=== PATIENT | male | born 1990 | race Caucasian/White ===

== ENCOUNTER 2022-11-09 14:41 | Emergency (ER) | payer OTHER, SELFPAY ==
--- NOTE | ~2022-11-09 | CT_ITS ---
EXAMINATION: CT abdomen pelvis w con INDICATION: Left lower quadrant pain TECHNIQUE: Computed tomographic images of the abdomen and pelvis were obtained after the administrati on of 100 cc of Omnipaque 350 intravenous contrast. The dose-length product (DLP) was 1640.88 mGy-cm. Automated exposure control and iterative reconstruction technique were employed. COMPARISON: None available FINDINGS: Minimal dependent atelectasis is present in the lung bases. The heart size is normal. The l iver is diffusely low in attenuation when compared with the spleen, consistent with hepatic steatosis . The spleen, pancreas, gallbladder, and adrenal glands are normal. No pathologically enlarged abdomi nal or pelvic lymph nodes are identified. No free intraperitoneal gas or evidence of bowel obstructio n. The appendix is normal. There is mild lumbar spondylosis. IMPRESSION: 1. Diffuse hepatic steatosis. Reviewed, dictated and finalized at location F.
[2022-11-09 14:54] VITALS: BP 145/105; PULSE 100; RESP 16; TEMP 36.3; O2SAT 97
[2022-11-09 15:36] LABS: Appearance Urine Clear (Clear); Bacteria Urine None Seen /hpf; Bilirubin Urine Negative (Negative); Blood Urine Negative (Negative); Color Urine Yellow (Yellow); Glucose Urine UA Negative (Negative); Ketones Urine Negative (Negative); Leukocyte Esterase Ur Trace LEU/UL (Negative); Nitrate Urine Negative (Negative); Non Pathogenic Casts 0-2; Protein Urine Negative (Negative); RBC Urine 0-2 /hpf (0-2); Specific Grav Ur 1.012 (1.001-1.035); Squamous Epithelial Cell Urine None seen /hpf (Few); WBC Urine 0-5 /hpf; pH Urine 6.5 (5.0-9.0)
[2022-11-09 15:45] LABS: Basophils Percent Auto 0.4 % (0.2-1.2); Eosinophils Absolute Auto 0.1 K/mm3 (0-0.3); Hematocrit 43.9 % (42.0-52.0); Immature Granulocyte Absolute 0.01 K/mm3 (0.00-0.031); Immature Granulocyte Percent A 0.2 % (0-0.5); Lymphocytes Absolute Auto 2.09 K/mm3 (0.9-3.2); Lymphocytes Percent Auto 44.5 % (18.3-44.2); Mean Corpuscular HGB Conc 34.2 g/dl (32-36); Mean Corpuscular Hemoglobin 31.1 pg (26-34); Mean Corpuscular Volume 91.1 fl (80-100); Mean Platelet Volume 10.2 fl (7.4-10.4); Monocytes Absolute Auto 0.4 K/mm3 (0.1-0.6); Monocytes Percent Auto 8.3 % (2.6-8.5); Neutrophils Absolute Auto 2.1 K/mm3 (1.3-6.7); Neutrophils Percent Auto 43.6 % (45.5-73.1); Platelet Count Result 156 k/mm3 (150-375); Red Blood Count 4.82 M/mm3 (4.6-6.20); Red Cell Distribution Width 13.2 % (11.5-14.5); White Blood Count 4.7 K/mm3 (4.5-10.0)
[2022-11-09 15:53] LABS: Add Urine Microscopic? YES
[2022-11-09 16:02] LABS: Alanine Aminotransferase 188 U/L (6-50); Albumin Level 4.6 g/dL (3.5-5.1); Alkaline Phosphatase 124 U/L (38-126); Anion Gap 11 mmol/L (8-16); Aspartate Amino Transferase 158 U/L (17-59); Bilirubin,Total 0.5 mg/dL (0.2-1.3); Blood Urea Nitrogen 11 mg/dL (9-20); Calcium 8.9 mg/dL (8.4-10.2); Carbon Dioxide 26 mmol/L (22-30); Chloride 100 mmol/L (98-107); Estimated Glomerular Filt Rate > 60; Glucose 100 mg/dL (65-110); Lipase 105 U/L (23-300); Potassium 4.1 mmol/L (3.4-5.0); Sodium 137 mmol/L (137-145)
--- NOTE | 2022-11-09 16:42 | ED.ABDPAIN ---
HPI - Abdominal Pain General Chief Complaint: Abdominal Pain Stated Complaint: Request Lab Work, Multiple Complaints Time Seen by Provider: 11/09/22 15:12 History of Present Illness HPI narrative: 32-year-old male present to the emergency department for evaluation of abdominal pain. Patient does admit to a recent alcohol binge where he has been drinking approximately 2 x 1/5 of alcohol daily. Patient did drink alcohol today. Patient states he has been having some right upper quadrant pain Related Data Allergies Allergy/AdvReac Type Severity Reaction Status Date / Time No Known Allergies Allergy Verified 11/09/22 15:03 Review of Systems Review of Systems: All systems reviewed & are unremarkable except as noted in HPI and below Exam Narrative: APPEARANCE: Well appearing, no pain, no distress, well-nourished. HEAD: normocephalic, atraumatic. EYES: PERRLA/EOMI, conjunctivae clear. NOSE: Normal no drainage EARS:TMS clear with good light reflex. THROAT: Pharynx clear, no exudate. NECK: Supple. No adenopathy, no masses. RESPIRATORY: Airway patent, respirations nonlabored. Clear to auscultation bilaterally, no rales, rhonchi, wheezing. CARDIOVASCULAR: Regular rate and rhythm without murmurs rubs or gallops. ABDOMINAL: Left lower quadrant tenderness to palpation MUSCULOSKELETAL: Moves all extremities. Strength/ROM intact, No edema, No calf tenderness. NEURO: Alert. Cranial nerves II through XII intact. Grossly intact SKIN: Warm, dry. Normal Color Course Course Emergency Course: 32-year-old male presented ED for evaluation of of abdominal pain. Patient had a negative CT scan. Patient was afebrile with no leukocytosis and a stable hemoglobin. Patient had mild elevation of his AST and ALT. No evidence of a UTI. Patient CT scan did show evidence of hepatic steatosis. Patient was updated on results of his imaging and was encouraged of close follow-up with a primary care physician and to quit drinking alcohol. All question concerns were addressed and patient was comfortable with the plan for discharge and close follow-up. Vital Signs Vital signs: Vital Signs Temperature 97.4 F L 11/09/22 14:54 Pulse Rate 100 11/09/22 14:54 Respiratory Rate 16 11/09/22 14:54 Blood Pressure 145/105 H 11/09/22 14:54 Pulse Oximetry 97 11/09/22 14:54 Oxygen Delivery Room Air 11/09/22 14:54 Temperature 97.4 F L 11/09/22 14:54 Pulse Rate 100 11/09/22 14:54 Respiratory Rate 16 11/09/22 14:54 Blood Pressure 145/105 H 11/09/22 14:54 Pulse Oximetry 97 11/09/22 14:54 Oxygen Delivery Room Air 11/09/22 14:54 MDM - Abdominal Pain Lab Data 11/09/22 15:40 11/09/22 15:40 Labs: Lab Results 11/09/22 11/09/22 11/09/22 Range/Units 15:18 15:40 16:39 WBC 4.7 (4.5-10.0) K/mm3 RBC 4.82 (4.6-6.20) M/mm3 Hgb 15.0 (14.0-18.0) g/dL Hct 43.9 (42.0-52.0) % MCV 91.1 (80-100) fl MCH 31.1 (26-34) pg MCHC 34.2 (32-36) g/dl RDW 13.2 (11.5-14.5) % Plt Count 156 (150-375) k/mm3 MPV 10.2 (7.4-10.4) fl Immature Gran % (Auto) 0.2 (0-0.5) % Neut % (Auto) 43.6 L (45.5-73.1) % Lymph % (Auto) 44.5 H (18.3-44.2) % [place] % (Auto) 8.3 (2.6-8.5) % Eos % (Auto) 3.0 (0-4.4) % Baso % (Auto) 0.4 (0.2-1.2) % Lymph # (Auto) 2.09 (0.9-3.2) K/mm3 [place] # (Auto) 0.4 (0.1-0.6) K/mm3 Eos # (Auto) 0.1 (0-0.3) K/mm3 Baso # (Auto) 0.0 (0.0-0.1) K/mm3 Abs Immat Gran (auto) 0.01 (0.00-0.031) K/mm3 Absolute Neuts (auto) 2.1 (1.3-6.7) K/mm3 Absolute Nucleated RBC 0.0 (0.0-0.012) K/mm3 Nucleated RBC % 0.0 (0.0-0.2) % Sodium 137 (137-145) mmol/L Potassium 4.1 (3.4-5.0) mmol/L Chloride 100 (98-107) mmol/L Carbon Dioxide 26 (22-30) mmol/L Anion Gap 11 (8-16) mmol/L BUN 11 (9-20) mg/dL Creatinine 0.70 (0.7-1.3) mg/dL Estim Creat Clear Calc Not Reportable Est
[2022-11-09] MEDS: SODIUM CHLORIDE 0.9% IV 1,000 ML 999 ML IV CONT (16:43)
[2022-11-09 16:56] LABS: Ammonia 18 umol/L (9-30)
== END 2022-11-09 17:29 | disposition home or self-care (01) ==
PROVIDERS: Emergency Provider Emergency Medicine
DX: R10.11 Right upper quadrant pain (principal); K76.0 Fatty (change of) liver, not elsewhere classified
CPT/HCPCS: 36415; 74177; 80053; 81001; 82140; 83690; 85025; 96360; 99284; J7030; Q9967

== ENCOUNTER 2023-01-28 09:07 | Observation (INO) | payer OTHER, SELFPAY ==
[2023-01-28] VITALS (8 sets, daily range): BP systolic 117–151; BP diastolic 76–112; PULSE 62–92; RESP 13–20; TEMP 36.7–37.1; O2SAT 96–99; BMI 32.4
--- NOTE | ~2023-01-28 | CT_ITS ---
EXAMINATION: CT abdomen pelvis w con DATE: 01/28/2023 10:24 INDICATION: Abdominal pain TECHNIQUE: Computed tomography (CT) of the abdomen and pelvis was performed with 100 cc Omnipaque 350 intravenous contrast. The dose-length product was 1552.86 mGy-cm. Automated exposure control and ite rative reconstruction technique were employed. COMPARISON: CT dated 11/09/2022. FINDINGS: Lung bases are unremarkable. Heart size normal. Fatty infiltration of the liver. Gallbladde r is present. There is duplication of the left renal collecting system. The spleen, pancreas, adrenal glands are unremarkable. Small subcentimeter hypodensity right kidney, most likely benign cysts. No significant hydronephrosis. No stones are identified. Nonobstructive bowel gas pattern. No significan t vascular abnormality. No abnormal pelvic masses or fluid collections. No free air or free fluid. No lymphadenopathy. No acute osseous abnormality. IMPRESSION: 1. No acute abdominal abnormality. 2: Hepatic steatosis. 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 Reviewed, dictated and finalized at location B.
--- NOTE | 2023-01-28 09:23 | ECG_ITS ---
Measurements Intervals [place] Rate: 68 P: 29 [place]: 138 QRS: -24 QRSD: 114 T: -11 QT: 423 QTc: 452 Interpretive Statements SINUS RHYTHM BORDERLINE LEFT AXIS DEVIATION [QRS AXIS < -20] MODERATE INTRAVENTRICULAR CONDUCTION DELAY [110+ ms QRS DURATION] MODERATE VOLTAGE CRITERIA FOR LVH, CONSIDER NORMAL VARIANT [MEETS CRITERIA IN ONE OF: R(aVL), S(V1), R(V5), R(V5/V6)+S(V1)] NO PREVIOUS ECG AVAILABLE FOR COMPARISON Electronically Signed On 01-29-2023 19:43:43 CDT by Romelia Mejía M.D.
--- NOTE | 2023-01-28 09:26 | PC.NURSE ---
Mother at bedside. Mother states pt 6 years ago pt was assessed for liver transplant. Pt states last live enzymes normal
--- NOTE | 2023-01-28 09:28 | ED.GENADULT ---
HPI - General Adult General Chief complaint: Alcohol Stated complaint: N/V, fever Time Seen by Provider: 01/28/23 09:08 History of Present Illness HPI narrative: Robb Bloom is a 32 y/o male with PMHx of ETOH abuse/ admits to being an alcoholic for about 12 years, and has been able to ween himself down before at home which he was attempting to do over this past week, until three days ago he started to have nausea/vomiting and abdominal pain. He states with alcohol withdrawals he has had the shakes/ hallucinations but never a seizure. He states that he has seen spots or felt something crawling on him a couple days ago but not any obvious hallucinations. He rates his abdominal pain at a 10/10 and states he has not eaten food in about a week. No chest pain/ shortness of breath. Related Data Home Medications Medication Instructions Recorded Confirmed buprenorphine 8 mg-naloxone 2 mg film sublingual BID 01/28/23 sublingual film dextroamphetamine-amphetamine 30 30 mg PO BID 01/28/23 01/28/23 mg tablet escitalopram oxalate 20 mg tablet 20 mg PO DAILY 01/28/23 01/28/23 Allergies Allergy/AdvReac Type Severity Reaction Status Date / Time No Known Allergies Allergy Verified 01/28/23 09:35 Review of Systems Review of Systems: CONSTITUTIONAL: Denies fever, chills, or sweats. EYES: Denies visual changes, redness, or discharge. ENT: Denies rhinorrhea, congestion, sore throat, or otalgia. CARDIOVASCULAR: Denies chest pain, palpitations, or edema. RESPIRATORY: Denies cough or dyspnea. GASTROINTESTINAL: Reports of abdominal pain/ nausea/vomiting. GENITOURINARY: Denies dysuria or hematuria. SKIN: Denies rash or itching. MUSCULOSKELETAL: Denies back pain, joint pain, or myalgia. NEUROLOGIC: Denies headache, numbness, dizziness, or weakness. PSYCHIATRIC: Denies anxiety or depression. [facility] Past Medical History Medical History (Updated 01/28/23 @ 19:10 by Urvashi Hanks APRN) ADHD Anxiety ETOH abuse Polysubstance abuse Social History Social History (Updated 01/28/23 @ 13:06 by Bailey Vences APRN) Social History: Patient says he was recently at a rehab in [place] completed treatment and then went to a sober living facility. He then moved appear to [place] because he needed work and his family owns a company and offered her him. Currently works at [employer]. Smoking packs per day: 0.5 Smoking cigarettes per day: 10.0 Years smoked: 5 Smoking pack-years: 2.50 Tobacco type: cigarettes Smokeless tobacco user: chewing tobacco Alcohol intake: current Alcohol use details: States he drinks 2 1/5's a day of vodka for the past few months. He has had a problem with alcohol abuse for 12 years. Substance use: former Substance use type: marijuana, amphetamines, opiates and IV drugs Other substance usage details: Last use IV methamphetamine 1 year ago. 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 EYES: PERRLA and EOMI. ENT: Nares clear, no rhinorrhea or epistaxis. Mucous membranes moist. NECK: Supple. No adenopathy or masses. No carotid bruits or JVD CHEST: Clear to auscultation. No respiratory distress. No wheezes rales or rhonchi HEART: Regular rate and rhythm. No murmur heard. Normal peripheral pulses. ABDOMEN:
[2023-01-28] MEDS: PROCHLORPERAZINE EDISYLATE 10 MG/2 ML VIAL IV PUSH (09:41)
[2023-01-28] MEDS: FAMOTIDINE 20 MG/2 ML VIAL IV PUSH ×2 (09:41→20:05)
[2023-01-28] MEDS: SODIUM CHLORIDE 0.9% IV 1,000 ML 999 ML IV CONT (09:41)
[2023-01-28] MEDS: diphenhydrAMINE HCl INJ 50 MG/ML VIAL 25 MG IV PUSH (09:41)
[2023-01-28 09:42] LABS: Basophils Percent Auto 0.2 % (0.2-1.2); Eosinophils Absolute Auto 0.1 K/mm3 (0-0.3); Eosinophils Percent Auto 1.1 % (0-4.4); Hemoglobin 16.7 g/dL (14.0-18.0); Immature Granulocyte Absolute 0.02 K/mm3 (0.00-0.031); Immature Granulocyte Percent A 0.3 % (0-0.5); Lymphocytes Absolute Auto 0.87 K/mm3 (0.9-3.2); Lymphocytes Percent Auto 13.2 % (18.3-44.2); Mean Corpuscular HGB Conc 35.5 g/dl (32-36); Mean Corpuscular Hemoglobin 31.9 pg (26-34); Mean Corpuscular Volume 89.9 fl (80-100); Mean Platelet Volume 11.2 fl (7.4-10.4); Monocytes Absolute Auto 0.4 K/mm3 (0.1-0.6); Monocytes Percent Auto 5.6 % (2.6-8.5); Neutrophils Absolute Auto 5.2 K/mm3 (1.3-6.7); Neutrophils Percent Auto 79.6 % (45.5-73.1); Platelet Count Result 144 k/mm3 (150-375); Red Blood Count 5.23 M/mm3 (4.6-6.20); Red Cell Distribution Width 12.6 % (11.5-14.5); White Blood Count 6.6 K/mm3 (4.5-10.0)
[2023-01-28 09:53] LABS: Alanine Aminotransferase 176 U/L (6-50); Albumin Level 4.8 g/dL (3.5-5.1); Alkaline Phosphatase 182 U/L (38-126); Anion Gap 13 mmol/L (8-16); Aspartate Amino Transferase 291 U/L (17-59); Bilirubin,Total 2.1 mg/dL (0.2-1.3); Blood Urea Nitrogen 9 mg/dL (9-20); Calcium 10.1 mg/dL (8.4-10.2); Carbon Dioxide 29 mmol/L (22-30); Chloride 87 mmol/L (98-107); Estimated CRCL calculation 249 ml/min; Estimated Glomerular Filt Rate > 60; Glucose 145 mg/dL (65-110); Magnesium 1.5 mg/dL (1.6-2.3); Partial Thromboplastin Time 26.6 SECONDS (22.3-36.8); Potassium 3.2 mmol/L (3.4-5.0); Prothrombin Time 13.8 Seconds (11.1-14.7); Sodium 129 mmol/L (137-145)
[2023-01-28 09:56] LABS: Ethanol < 10 mg/dL (<10)
[2023-01-28 10:04] LABS: Troponin I < 0.012 ng/mL (0.000-0.034)
--- NOTE | 2023-01-28 10:32 | PCCCNOTE ---
Met with patient bedside, patient is alert and oriented x 4, I ADL and states that he came to ER with alcohol withdraw symptoms. patient is interested in recovery and agreed to a referral to Brendon with [facility]. CC printed facesheet and gave to Brendon. CC will continue to follow for any needs that may arise.
[2023-01-28 11:12] LABS: Add Urine Microscopic? YES; Appearance Urine Clear (Clear); Bacteria Urine None Seen /hpf; Bilirubin Urine 1+ (Negative); Blood Urine Negative (Negative); Color Urine Dark Yellow (Yellow); Glucose Urine UA Negative (Negative); Ketones Urine Negative (Negative); Leukocyte Esterase Ur Trace LEU/UL (Negative); Nitrate Urine Negative (Negative); Non Pathogenic Casts 0-2; Protein Urine 2+ mg/dL (Negative); RBC Urine 0-2 /hpf (0-2); Squamous Epithelial Cell Urine None seen /hpf (Few); WBC Urine 0-5 /hpf
[2023-01-28] MEDS: LORazepam INJ (*CRX) 2 MG/ML VIAL IV PUSH ×2 (11:44→16:26)
[2023-01-28 12:14] LABS: Amphetamine Screen Urine Negative (Negative); Barbiturate Screen Urine Negative (Negative); Benzodiazepines Screen Urine Negative (Negative); Cannabinoid Screen Urine Negative (Negative); Cocaine Screen Urine Negative (Negative); Methadone Screen Urine Negative (Negative); Opiate Screen Urine Negative (Negative); Phencyclidine Screen Urine Negative (Negative)
--- NOTE | 2023-01-28 12:22 | ADMIMU ---
This patient, Robb Bloom, was admitted to IMU status, and placed in Intensive Care Unit-6. Patient/family oriented to hospital policies and general routines including ID bracelet, bed and alarms, visiting hours, pain management, procedures, bathroom and other care routines, personal items, smoking policy, room service/diet, and visiting hours. Valuables list has been completed. Information on how to activate the Rapid Response Team has been discussed. Patient/Family are encouraged to report perceived risks to care and to ask questions if they do not understand what they are told or what they should do.
--- NOTE | 2023-01-28 12:24 | PM.IMHP ---
H&P: HPI History of Present Illness Date/Time: 01/28/23 12:24 Meds Home Medications and Allergies Allergies Allergy/AdvReac Type Severity Reaction Status Date / Time No Known Allergies Allergy Verified 01/28/23 09:35 Vital Signs Vital Signs - 24 hr 01/28/23 09:12 01/28/23 09:16 01/28/23 10:01 Temperature Pulse Rate 68 64 62 Respiratory Rate 20 19 13 Blood Pressure 151/111 H 148/112 H 142/100 H Pulse Oximetry 99 98 99 Oxygen Delivery Room Air 01/28/23 11:31 Temperature 36.7 C Pulse Rate 68 Respiratory Rate 18 Blood Pressure 117/81 Pulse Oximetry 97 Oxygen Delivery H&P: Results Labs Labs: Short CBC 01/28/23 Range/Units 09:31 WBC 6.6 (4.5-10.0) K/mm3 Hgb 16.7 (14.0-18.0) g/dL Hct 47.0 (42.0-52.0) % Plt Count 144 L (150-375) k/mm3 BMP 01/28/23 09:31 Sodium 129 L Potassium 3.2 L Chloride 87 L Carbon Dioxide 29 BUN 9 Creatinine 0.50 L Glucose 145 H Calcium 10.1 Cardiac Enzymes 01/28/23 Range/Units 09:31 Troponin I < 0.012 (0.000-0.034) ng/mL Liver Function 01/28/23 Range/Units 09:31 Total Bilirubin 2.1 H (0.2-1.3) mg/dL AST 291 H (17-59) U/L ALT 176 H (6-50) U/L Alkaline Phosphatase 182 H (38-126) U/L Albumin 4.8 (3.5-5.1) g/dL Urine 01/28/23 Range/Units 10:34 Urine Color Dark yellow (Yellow) Urine Appearance Clear (Clear) Urine pH 8.0 (5.0-9.0) Ur Specific [place] 1.020 (1.001-1.035) Urine Protein 2+ H (Negative) mg/dL Urine Glucose (UA) Negative (Negative) mg/dL
--- NOTE | 2023-01-28 12:53 | PM.IMHP ---
H&P: HPI History of Present Illness Date/Time: 01/28/23 12:53 Chief Complaint: Nausea and vomiting from alcohol withdrawal Narrative: This is a 32-year-old male with a past medical history of anxiety, ADHD, and polysubstance abuse. He presents to [facility] ED on 01/28 with complaints of nausea and vomiting and unable to eat or drink as he has been trying to wean himself from alcohol. He states that he drinks 2/5 of vodka a day and has for the past few months. He has had chronic alcohol abuse for the past 12 years. He states that he has a past medical history of opioid abuse for which he takes Suboxone, he has also used IV meth but year ago, and chews tobacco. Labs in the ER showed electrolyte derangements along with elevated liver enzymes. CT abdomen pelvis shows hepatic steatosis but is otherwise benign. On exam he is drowsy, tremulous, and has difficulty with word finding. He reports nausea and vomiting, denies any active hallucinations but he says that everything ?seems loud?. He also reports dizziness. He says that he has withdrawn from alcohol before and has experienced tactile and auditory hallucinations. He states he has never had a seizure from withdrawal. His also says his throat is sore from the frequent vomiting. He is being admitted for IV hydration, electrolyte replacement, and monitoring during withdrawal from alcohol. Review of Systems Review of Systems: All systems reviewed & are unremarkable except as noted in HPI and below PMFSH Past Medical History Medical History (Updated 01/28/23 @ 13:11 by Bailey Vences APRN) ADHD Anxiety ETOH abuse Polysubstance abuse Social History Social History (Updated 01/28/23 @ 13:06 by Bailey Vences APRN) Social History: Patient says he was recently at a rehab in [place] completed treatment and then went to a sober living facility. He then moved appear to [place] because he needed work and his family owns a company and offered her him. Currently works at [employer]. Smoking packs per day: 0.5 Smoking cigarettes per day: 10.0 Years smoked: 5 Smoking pack-years: 2.50 Tobacco type: cigarettes Smokeless tobacco user: chewing tobacco Alcohol intake: current Alcohol use details: States he drinks 2 1/5's a day of vodka for the past few months. He has had a problem with alcohol abuse for 12 years. Substance use: former Substance use type: marijuana, amphetamines, opiates and IV drugs Other substance usage details: Last use IV methamphetamine 1 year ago. 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 Gender identity (if verbalized by the patient): Male Spiritual care concerns: No Meds Home Medications and Allergies Allergies Allergy/AdvReac Type Severity Reaction Status Date / Time No Known Allergies Allergy Verified 01/28/23 09:35 Vital Signs Vital Signs - 24 hr 01/28/23 09:12 01/28/23 09:16 01/28/23 10:01 Temperature Pulse Rate 68 64 62 Respiratory Rate 20 19 13 Blood Pressure 151/111 H 148/112 H 142/100 H Pulse Oximetry 99 98 99 Oxygen Delivery Room Air 01/28/23 11:31 Temperature 98.0 F Pulse Rate 68 Respiratory Rate 18 Blood Pressure 117/81 Pulse Oximetry 97 Oxygen Delivery Exam Narrative: General: Flushed, tremulous, drowsy, appears stated age. HEENT: normocephalic, atraumatic. Mucous membranes moist. EOMI, PERRLA, bilateral sclera anicteric, bilateral scleral injection. Neck supple without JVD, lymphadenopathy, or bruit
--- NOTE | 2023-01-28 13:41 | ECG_ITS ---
Measurements Intervals [place] Rate: 65 P: 22 [place]: 134 QRS: -27 QRSD: 121 T: -12 QT: 432 QTc: 450 Interpretive Statements SINUS RHYTHM BORDERLINE LEFT AXIS DEVIATION [QRS AXIS < -20] POSSIBLE LEFT VENTRICULAR HYPERTROPHY [VOLTAGE CRITERIA PLUS LAE OR QRS WIDENING] BORDERLINE ECG NO PREVIOUS ECG AVAILABLE FOR COMPARISON Electronically Signed On 01-28-2023 14:51:35 CDT by Adolfo Ledesma M.D.
[2023-01-28] MEDS: BUPRENORPHINE/NALOXONE (*CRX) 4 MG/1 MG SL FILM 2 EACH SUBLINGUAL (16:21)
[2023-01-28] MEDS: chlordiazePOXIDE (*CRX) 25 MG CAPSULE 50 MG PO ×2 (16:22→23:05)
[2023-01-28] MEDS: ONDANSETRON INJ 4 MG/2 ML VIAL IV PUSH (16:26)
[2023-01-28] MEDS: LACTATED RINGERS 500 ML 75 ML IV CONT (18:40)
[2023-01-28] MEDS: LACTATED RINGERS 1,000 ML 999 ML IV CONT (19:12)
[2023-01-28] MEDS: LORazepam INJ (*CRX) 2 MG/ML VIAL 1 MG IV PUSH (20:40)
[2023-01-29] VITALS (7 sets, daily range): BP systolic 139–156; BP diastolic 89–121; PULSE 55–85; RESP 10–18; TEMP 35.7–37.1; O2SAT 96–100
[2023-01-29] MEDS: LORazepam INJ (*CRX) 2 MG/ML VIAL IV PUSH ×2 (00:49→05:50)
[2023-01-29] MEDS: LACTATED RINGERS 500 ML 75 ML IV CONT ×2 (01:52→20:14)
[2023-01-29 02:57] LABS: Glucose Point of Care 102 mg/dl (65-105)
[2023-01-29 04:41] LABS: Basophils Percent Auto 0.4 % (0.2-1.2); Eosinophils Absolute Auto 0.1 K/mm3 (0-0.3); Eosinophils Percent Auto 1.1 % (0-4.4); Hemoglobin 14.8 g/dL (14.0-18.0); Immature Granulocyte Absolute 0.01 K/mm3 (0.00-0.031); Immature Granulocyte Percent A 0.2 % (0-0.5); Immature Platelet Fraction Pct 9.7 % (0.9-11.2); Lymphocytes Absolute Auto 1.32 K/mm3 (0.9-3.2); Lymphocytes Percent Auto 28.3 % (18.3-44.2); Mean Corpuscular HGB Conc 34.4 g/dl (32-36); Mean Corpuscular Hemoglobin 32.5 pg (26-34); Mean Corpuscular Volume 94.5 fl (80-100); Mean Platelet Volume 10.8 fl (7.4-10.4); Monocytes Absolute Auto 0.3 K/mm3 (0.1-0.6); Monocytes Percent Auto 6.9 % (2.6-8.5); Neutrophils Absolute Auto 2.9 K/mm3 (1.3-6.7); Neutrophils Percent Auto 63.1 % (45.5-73.1); Platelet Count Result 118 k/mm3 (150-375); Red Blood Count 4.55 M/mm3 (4.6-6.20); White Blood Count 4.7 K/mm3 (4.5-10.0)
[2023-01-29 04:51] LABS: Alanine Aminotransferase 164 U/L (6-50); Albumin Level 4.2 g/dL (3.5-5.1); Alkaline Phosphatase 137 U/L (38-126); Anion Gap 6 mmol/L (8-16); Aspartate Amino Transferase 290 U/L (17-59); Bilirubin,Total 1.8 mg/dL (0.2-1.3); Blood Urea Nitrogen 11 mg/dL (9-20); Calcium 9.4 mg/dL (8.4-10.2); Carbon Dioxide 31 mmol/L (22-30); Chloride 96 mmol/L (98-107); Estimated CRCL calculation 173 ml/min; Estimated Glomerular Filt Rate > 60; Glucose 90 mg/dL (65-110); Magnesium 1.9 mg/dL (1.6-2.3); Potassium 3.7 mmol/L (3.4-5.0); Sodium 133 mmol/L (137-145)
--- NOTE | 2023-01-29 05:24 | PC.NURSE ---
Patient requesting to leave AMA. Patient removing monitor and refuses to keep it on. Patient's mother called ICU asking someone to check on him saying he has been texting her not making sense since around 0300 and states he would not have a ride home. This nurse called Dr. Martinez to request patient evaluation.
[2023-01-29] MEDS: BUPRENORPHINE/NALOXONE (*CRX) 4 MG/1 MG SL FILM 2 EACH SUBLINGUAL ×2 (05:49→20:14)
[2023-01-29] MEDS: HALOPERIDOL LACTATE 5 MG/ML VIAL IV PUSH (05:50)
[2023-01-29] MEDS: chlordiazePOXIDE (*CRX) 25 MG CAPSULE 50 MG PO ×2 (06:23→12:41)
[2023-01-29 07:41] LABS: Glucose Point of Care 97 mg/dl (65-105)
--- NOTE | 2023-01-29 09:13 | PM.IMPN ---
Progress Note: A&P Assessment and Plan (1) ETOH abuse: Code(s): F10.10 - Alcohol abuse, uncomplicated Status: Acute Assessment and Plan: Chronic alcohol abuse Daily drinker 1-2 fifths of vodka a day Has been trying to wean himself off of alcohol this week complicated with nausea and vomiting Admitted for observation with IV fluids, electrolyte replacement Add on thiamin, multivitamin CIWA = 2, wean librium as able (2) Polysubstance abuse: Code(s): F19.10 - Other psychoactive substance abuse, uncomplicated Status: Acute (3) Anxiety: Code(s): F41.9 - Anxiety disorder, unspecified Status: Acute (4) ADHD: Code(s): F90.9 - Attention-deficit hyperactivity disorder, unspecified type Status: Acute Plan DVT prophylaxis with SCDs GI prophylaxis with H2 randal Code status full code Subjective Date/time seen: 01/29/23 09:13 Interval history: 32-year-old male with history of anxiety, ADHD and polysubstance abuse presenting with nausea and vomiting currently being treated for dehydration and alcohol withdrawal. Somnolent, difficult to arouse. Answers questions appropriately per nursing staff. Did receive Haldol orally in the morning. No other events noted. No fevers. Review of Systems Review of Systems: ROS unobtainable: Yes unobtainable due to mental status Exam Narrative: General: Lethargic, difficult to arouse HEENT: Atraumatic, normocephalic, mucous membranes moist CV: Regular rate and rhythm, S1, S2 Lungs: Clear to auscultation bilaterally, no rales or crackles noted, no wheezes, good air entry Abdomen: Soft, nontender, nondistended Extremities: Normal to inspection Skin: No rashes noted, no lesions or wounds seen Psych: Unable to assess Objective Data Vital Signs Vital Signs: Vital Signs - 24 hr 01/28/23 09:16 01/28/23 10:01 01/28/23 11:31 Temperature 98.0 F Pulse Rate 64 62 68 Pulse Rate [Monitor] Respiratory Rate 19 13 18 Blood Pressure 148/112 H 142/100 H 117/81 Pulse Oximetry 98 99 97 01/28/23 16:00 01/28/23 16:00 01/28/23 16:00 Temperature 98.4 F Pulse Rate 63 63 Pulse Rate [Monitor] 92 Respiratory Rate 18 Blood Pressure 137/76 Pulse Oximetry 98 01/28/23 19:38 01/28/23 20:00 01/28/23 20:00 Temperature 98.8 F Pulse Rate 66 62 Pulse Rate [Monitor] 67 Respiratory Rate 16 Blood Pressure 148/105 H Pulse Oximetry 96 01/28/23 20:37 01/29/23 00:46 01/29/23 00:00 Temperature Pulse Rate 85 Pulse Rate [Monitor] 65 60 Respiratory Rate Blood Pressure Pulse Oximetry 01/29/23 00:00 01/29/23 04:00 01/29/23 04:00 Temperature 98.5 F 98.8 F Pulse Rate 64 58 L Pulse Rate [Monitor] 58 L Respiratory Rate 18 16 Blood Pressure 149/111 H 154/107 H Pulse Oximetry 99 100 01/29/23 04:00 01/29/23 08:00 01/29/23 08:00 Temperature 97.8 F Pulse Rate 55 L 61 61 Pulse Rate [Monitor] Respiratory Rate 12 Blood Pressure 139/89 Pulse Oximetry 98 Intake/Output Intake/Output: Intake & Output 01/26/23 01/27/23 01/28/23 01/29/23 23:59 23:59 23:59 23:59 Intake Total 1630 900 Output Total 3150 250 Balance -1520 650 Meds/Results Medications: Active Medications Generic Name Dose Route Start Last Admin Trade Name Kuldeep PRN Reason Stop Dose Admin Buprenorphine/Naloxone 2 each 01/28/23 18:00 01/29/23 05:49 Buprenorphine/Naloxone (*Crx) 4 Mg/1 Mg Sl Film SUBLINGUAL 2 each Q12H MARYLU Administration Chlordiazepoxide HCl 50 mg 01/28/23 18:00 01/29/23 06:23 Chlordiazepoxide (*Crx) 25 Mg Capsule PO 50 mg Q6HR MARYLU Administration Escitalopram Oxalate 20 mg 01/29/23 09:00 Escitalopram Oxalate 10 Mg Tablet PO DAILY MARYLU Famotidine 20 mg 01/28/23 21:00 01/28/23 20:05 Famotidine 20 Mg/2 Ml Vial IV PUSH 20 mg Q12HR MARYLU Administration Lactated Ringer's 500 mls @ 75 mls/hr 01/28/23 18:00 01/29/23 01
[2023-01-29] MEDS: ESCITALOPRAM OXALATE 10 MG TABLET 20 MG PO (09:37)
[2023-01-29] MEDS: FAMOTIDINE 20 MG/2 ML VIAL IV PUSH ×2 (09:38→20:14)
[2023-01-29] MEDS: THIAMINE HCL 200 MG/2 ML VIAL 100 MG IV PUSH (09:38)
[2023-01-29] MEDS: THERAPEUTIC MULTIVITAMINS/MINERALS TAB (*BKC) 1 TABLET PO (09:38)
[2023-01-29 12:47] LABS: Glucose Point of Care 96 mg/dl (65-105)
[2023-01-29] MEDS: chlordiazePOXIDE (*CRX) 25 MG CAPSULE PO (20:14)
[2023-01-30] VITALS (9 sets, daily range): BP systolic 139–169; BP diastolic 87–124; PULSE 65–82; RESP 11–15; TEMP 36.6–37.1; O2SAT 92–97
[2023-01-30] MEDS: chlordiazePOXIDE (*CRX) 25 MG CAPSULE PO ×4 (03:15→17:03)
[2023-01-30] MEDS: hydrALAZINE HCL 20 MG/ML VIAL 10 MG IV PUSH (03:37)
[2023-01-30 04:36] LABS: Basophils Percent Auto 0.6 % (0.2-1.2); Eosinophils Absolute Auto 0.2 K/mm3 (0-0.3); Eosinophils Percent Auto 3.1 % (0-4.4); Hematocrit 46.1 % (42.0-52.0); Hemoglobin 15.5 g/dL (14.0-18.0); Immature Granulocyte Absolute 0.03 K/mm3 (0.00-0.031); Immature Granulocyte Percent A 0.6 % (0-0.5); Lymphocytes Absolute Auto 1.21 K/mm3 (0.9-3.2); Lymphocytes Percent Auto 24.7 % (18.3-44.2); Mean Corpuscular HGB Conc 33.6 g/dl (32-36); Mean Corpuscular Hemoglobin 32.4 pg (26-34); Mean Corpuscular Volume 96.2 fl (80-100); Mean Platelet Volume 10.7 fl (7.4-10.4); Monocytes Absolute Auto 0.4 K/mm3 (0.1-0.6); Monocytes Percent Auto 8.6 % (2.6-8.5); Neutrophils Absolute Auto 3.1 K/mm3 (1.3-6.7); Neutrophils Percent Auto 62.4 % (45.5-73.1); Platelet Count Result 123 k/mm3 (150-375); Red Blood Count 4.79 M/mm3 (4.6-6.20); Red Cell Distribution Width 13.2 % (11.5-14.5); White Blood Count 4.9 K/mm3 (4.5-10.0)
[2023-01-30 04:45] LABS: Alanine Aminotransferase 170 U/L (6-50); Albumin Level 4.1 g/dL (3.5-5.1); Alkaline Phosphatase 136 U/L (38-126); Anion Gap 9 mmol/L (8-16); Aspartate Amino Transferase 228 U/L (17-59); Bilirubin,Total 1.5 mg/dL (0.2-1.3); Blood Urea Nitrogen 16 mg/dL (9-20); Calcium 9.3 mg/dL (8.4-10.2); Carbon Dioxide 28 mmol/L (22-30); Chloride 97 mmol/L (98-107); Estimated CRCL calculation 136 ml/min; Estimated Glomerular Filt Rate > 60; Glucose 86 mg/dL (65-110); Potassium 3.7 mmol/L (3.4-5.0); Sodium 134 mmol/L (137-145)
[2023-01-30] MEDS: BUPRENORPHINE/NALOXONE (*CRX) 4 MG/1 MG SL FILM 2 EACH SUBLINGUAL ×2 (06:20→17:03)
[2023-01-30] MEDS: FAMOTIDINE 20 MG/2 ML VIAL IV PUSH (09:01)
[2023-01-30] MEDS: THERAPEUTIC MULTIVITAMINS/MINERALS TAB (*BKC) 1 TABLET PO (09:01)
[2023-01-30] MEDS: THIAMINE HCL 200 MG/2 ML VIAL 100 MG IV PUSH (09:01)
[2023-01-30] MEDS: LACTATED RINGERS 500 ML 75 ML IV CONT (09:01)
[2023-01-30] MEDS: ESCITALOPRAM OXALATE 10 MG TABLET 20 MG PO (09:02)
[2023-01-30 11:33] LABS: Glucose Point of Care 92 mg/dl (65-105)
--- NOTE | 2023-01-30 16:12 | PM.DS ---
DS: Admitting Diagnosis Discharge Date 01/30/23 Admitting Diagnosis Nausea and vomiting from alcohol withdrawal DS: Discharge Diagnosis Discharge Diagnosis (1) ETOH abuse: Code(s): F10.10 - Alcohol abuse, uncomplicated Status: Acute (2) Polysubstance abuse: Code(s): F19.10 - Other psychoactive substance abuse, uncomplicated Status: Acute (3) Anxiety: Code(s): F41.9 - Anxiety disorder, unspecified Status: Acute (4) ADHD: Code(s): F90.9 - Attention-deficit hyperactivity disorder, unspecified type Status: Acute DS: Summary Hospital Course Reason for hospitalization: 32-year-old male with history of anxiety, ADHD and polysubstance abuse presenting with nausea and vomiting and was treated for dehydration and alcohol withdrawal. Please see H&P for details. Hospital Course: Patient presents with nausea and vomiting. He was treated with anti-emetics. Ativan given then started on scheduled Librium. Also started on Thiamine and Folate. Home medications including Suboxone were started. He was given IV fluids. Nausea improved and diet started. He was monitored with CIWA protocol and scores improved down to 2-3. He was educated about the benefits of abstaining from alcohol and drug use. He voices understanding. He follows with [facility]. compensation coordinator discussed options with patient but he did not want rehab but will follow up with [facility] and [facility]. He overall did well and was able to be discharged home on 01/30/23. Status at Discharge Cognitive/behavioral status at discharge: Stable Time Spent with Patient Time attestation: Total time spent providing and/or coordinating discharge services: 35 minutes Time spent: Greater than 30 minutes Exam Narrative: AF 98.8 139/109 75 15 97%ra Gen - NARD Chest - CTA bilaterally, nml RR CV - RRR S1/S2. Tele showing one episode of sinus tachycardia to 140's (no acute onset or abrupt stop and not c/w AFlutter) Abd - Soft, NT/ND, Positive BS Ext - No pedal edema Neuro - Alert and oriented. Nonfocal exam. Psych - Nml mood and affect. no tremors Skin - Warm and dry DS: Data Data Completed and Pending Labs on day of discharge: Labs from last 24 hours 01/30/23 01/30/23 11:11 04:26 WBC 4.9 RBC 4.79 Hgb 15.5 Hct 46.1 MCV 96.2 MCH 32.4 MCHC 33.6 RDW 13.2 Plt Count 123 L MPV 10.7 H Immature Gran % (Auto) 0.6 H Neut % (Auto) 62.4 Lymph % (Auto) 24.7 [place] % (Auto) 8.6 H Eos % (Auto) 3.1 Baso % (Auto) 0.6 Lymph # (Auto) 1.21 [place] # (Auto) 0.4 Eos # (Auto) 0.2 Baso # (Auto) 0.0 Abs Immat Gran (auto) 0.03 Absolute Neuts (auto) 3.1 Absolute Nucleated RBC 0.0 Nucleated RBC % 0.0 Sodium 134 L Potassium 3.7 Chloride 97 L Carbon Dioxide 28 Anion Gap 9 BUN 16 Creatinine 0.90 Estim Creat Clear Calc 136 Estimated GFR > 60 Glucose 86 POC Capillary Glucose 92 Calcium 9.3 Total Bilirubin 1.5 H AST 228 H ALT 170 H Alkaline Phosphatase 136 H Total Protein 7.0 Albumin 4.1 Discharge Plan Discharge Attending physician on discharge: Nitish Betts Discharging Clinician: Nitish Betts Anticipated Discharge Date/Time: 01/30/23 16:24 Patient Disposition: Home, Self-Care Activity: as tolerated Diet: regular Discharge Instructions: Please stop using all products that contain alcohol. Please avoid all illegal drug use. Do not drive or use heavy machinery when intoxicated. Follow-up with your primary care provider in 1-2 weeks. Please call for appointment. Follow-up with [facility]. Please call for an appointment. Follow with [facility] and [facility]. Thank you for using [facility] for your health care needs. Patient Instructions: Antibiotic Form, How to Stop Smoking (DC) Stand Alone Forms: General Discharge Information Follow-up/Referrals: Coleen,DIONTE Moreno [Primary Care Provide
[2023-01-30 16:25] LABS: Glucose Point of Care 96 mg/dl (65-105)
== END 2023-01-30 17:10 | disposition home or self-care (01) ==
LOC: ANHED 11:57 → ANHICU 19:09
PROVIDERS: Nurse Practitioner Acute Care; Student in an Organized Health Care Education/Training Program; Admitting Provider Chiropractor; Emergency Provider Nurse Practitioner Family; PCP Nurse Practitioner; Visit Provider Internal Medicine
DX: F10.139 Alcohol abuse with withdrawal, unspecified (principal); Y90.0 Blood alcohol level of less than 20 mg/100 ml; E86.0 Dehydration; F19.10 Other psychoactive substance abuse, uncomplicated; K76.0 Fatty (change of) liver, not elsewhere classified; R10.9 Unspecified abdominal pain; R11.2 Nausea with vomiting, unspecified; F90.9 Attention-deficit hyperactivity disorder, unspecified type; F41.9 Anxiety disorder, unspecified; I45.4 Nonspecific intraventricular block; Q63.8 Other specified congenital malformations of kidney; F17.210 Nicotine dependence, cigarettes, uncomplicated; Z79.899 Other long term (current) drug therapy
CPT/HCPCS: 36415; 74177; 80053; 80307; 81001; 82948; 83735; 84100; 84484; 85025; 85055; 85610; 85730; 93005; 96361; 96365; 96374; 96375; 96376; 99285; A9270; G0378; G0379; J0360; J0780; J1200; J1630; J2060; J2405; J3411; J3475; J7030; J7120; Q9967

== ENCOUNTER 2023-06-10 19:47 | Emergency (ER) | payer OTHER, SELFPAY ==
[2023-06-10 19:55] VITALS: BP 157/99; PULSE 94; RESP 16; TEMP 36.6; O2SAT 91
[2023-06-10 21:14] VITALS: BP 165/104; PULSE 66; RESP 12; O2SAT 94
--- NOTE | 2023-06-10 21:35 | ED.ALCOHOL ---
HPI - Alcohol General Chief Complaint: Alcohol Stated Complaint: ETOH relapse Time Seen by Provider: 06/10/23 21:34 History of Present Illness HPI narrative: Patient is a 31-year-old male who presents to the emergency department evening after relapsing on alcohol. Patient admits that he has been alcohol free for approximately 80s but within the past month he has relapsed and has been drinking almost daily. Patient states that he has been slowly decreasing his alcohol intake day by dates states that today he only took 3 shots and pneumonia. This is the patient's plan to not go through alcohol withdrawals. Patient states the last time he was seen at our facility for similar symptoms he was prescribed Librium to help him with his alcohol withdrawal symptoms. Patient is requesting another script for Librium and resources as he wants to quit alcohol again. He is currently denying any additional symptoms including any chest pain, shortness of breath, nausea, vomiting, headaches or dizziness. There are no other modifying, alleviating, or precipitating factors at this time. Related Data Home Medications Medication Instructions Recorded Confirmed buprenorphine 8 mg-naloxone 2 mg film sublingual BID 01/28/23 sublingual film dextroamphetamine-amphetamine 30 30 mg PO BID 01/28/23 01/28/23 mg tablet escitalopram oxalate 20 mg tablet 20 mg PO DAILY 01/28/23 01/28/23 Allergies Allergy/AdvReac Type Severity Reaction Status Date / Time No Known Allergies Allergy Verified 01/28/23 09:35 Review of Systems Review of Systems: All systems are reviewed and are negative unless stated otherwise in the HPI, within the limitations of the patient's intoxication. PMFSH Past Medical History Medical History ADHD Anxiety ETOH abuse Polysubstance abuse Social History Social History Social History: Patient says he was recently at a rehab in [place] completed treatment and then went to a sober living facility. He then moved appear to [place] because he needed work and his family owns a company and offered her him. Currently works at [employer]. Smoking packs per day: 0.5 Smoking cigarettes per day: 10.0 Years smoked: 5 Smoking pack-years: 2.50 Tobacco type: cigarettes Smokeless tobacco user: chewing tobacco Alcohol intake: current Alcohol use details: States he drinks 2 1/5's a day of vodka for the past few months. He has had a problem with alcohol abuse for 12 years. Substance use: former Substance use type: marijuana, amphetamines, opiates and IV drugs Other substance usage details: Last use IV methamphetamine 1 year ago. 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 HEENT: PERRL, no rhinorrhea, no post nasal drip, oropharynx clear. Neck: Trachea midline, no JVD, no lymphadenopathy. Cardiovascular: Regular rate and rhythm, no murmurs, rubs or gallops, no peripheral edema. Respiratory: Clear to auscultation bilaterally, no tachypnea, no wheezing, no rhonchi, no rubs, no respiratory distress. Abdomen: Soft, nontender, nondistended, no rebound, no guarding, no peritoneal signs. Musculoskeletal: No joint swelling or deformity, normal muscle tone. Skin:
[2023-06-10] MEDS: SODIUM CHLORIDE 0.9% IV 1,000 ML 999 ML IV CONT (22:10)
[2023-06-10 22:22] LABS: Basophils Percent Auto 0.4 % (0.2-1.2); Eosinophils Absolute Auto 0.1 K/mm3 (0-0.3); Eosinophils Percent Auto 1.1 % (0-4.4); Hematocrit 48.9 % (42.0-52.0); Hemoglobin 16.6 g/dL (14.0-18.0); Immature Granulocyte Absolute 0.01 K/mm3 (0.00-0.031); Immature Granulocyte Percent A 0.2 % (0-0.5); Lymphocytes Absolute Auto 1.13 K/mm3 (0.9-3.2); Mean Corpuscular HGB Conc 33.9 g/dl (32-36); Mean Corpuscular Hemoglobin 31.3 pg (26-34); Mean Corpuscular Volume 92.3 fl (80-100); Mean Platelet Volume 9.4 fl (7.4-10.4); Monocytes Absolute Auto 0.2 K/mm3 (0.1-0.6); Monocytes Percent Auto 3.9 % (2.6-8.5); Neutrophils Percent Auto 73.4 % (45.5-73.1); Platelet Count Result 194 k/mm3 (150-375); Red Cell Distribution Width 14.6 % (11.5-14.5); White Blood Count 5.4 K/mm3 (4.5-10.0)
[2023-06-10 22:32] VITALS: BP 149/96; PULSE 72; RESP 23; O2SAT 94
[2023-06-10 22:44] LABS: Alanine Aminotransferase 56 U/L (6-50); Albumin Level 4.5 g/dL (3.5-5.1); Alkaline Phosphatase 221 U/L (38-126); Anion Gap 12 mmol/L (8-16); Aspartate Amino Transferase 121 U/L (17-59); Bilirubin,Total 0.7 mg/dL (0.2-1.3); Blood Urea Nitrogen 12 mg/dL (9-20); Calcium 8.8 mg/dL (8.4-10.2); Carbon Dioxide 32 mmol/L (22-30); Chloride 94 mmol/L (98-107); Estimated CRCL calculation 202 ml/min; Estimated Glomerular Filt Rate > 60; Glucose 130 mg/dL (65-110); Potassium 3.9 mmol/L (3.4-5.0); Sodium 138 mmol/L (137-145)
[2023-06-10 22:47] LABS: Ethanol 316 mg/dL (<10)
[2023-06-10] MEDS: SODIUM CHLORIDE 0.9% IV 1,000 ML 150 ML IV CONT (23:15)
[2023-06-11 00:31] VITALS: BP 145/94; PULSE 97; RESP 15; O2SAT 95
[2023-06-11 02:20] VITALS: BP 134/89; PULSE 85; RESP 15; O2SAT 95
[2023-06-11 04:43] VITALS: BP 152/92; PULSE 76; RESP 15; O2SAT 94
[2023-06-11 04:45] LABS: Ethanol 133 mg/dL (<10)
[2023-06-11 06:30] VITALS: BP 151/95; PULSE 64; RESP 18; O2SAT 97
== END 2023-06-11 06:33 | disposition home or self-care (01) ==
PROVIDERS: Emergency Provider Emergency Medicine; PCP Nurse Practitioner
DX: F10.129 Alcohol abuse with intoxication, unspecified (principal); Y90.8 Blood alcohol level of 240 mg/100 ml or more; F90.9 Attention-deficit hyperactivity disorder, unspecified type; F41.9 Anxiety disorder, unspecified; F17.210 Nicotine dependence, cigarettes, uncomplicated; F17.220 Nicotine dependence, chewing tobacco, uncomplicated
CPT/HCPCS: 36415; 80053; 80307; 85025; 96360; 96361; 99283; J7030

== ENCOUNTER 2023-08-04 23:43 | Emergency (ER) | payer OTHER, SELFPAY ==
[2023-08-04 23:41] VITALS: BP 160/104; PULSE 89; RESP 14; TEMP 36.4; O2SAT 94
--- NOTE | 2023-08-04 23:45 | ECG_ITS ---
SEE SCANNED COPY FOR CONFIRMED REPORT MTDD
[2023-08-04 23:56] LABS: Basophils Percent Auto 0.7 % (0.2-1.2); Eosinophils Absolute Auto 0.1 K/mm3 (0-0.3); Eosinophils Percent Auto 1.9 % (0-4.4); Hematocrit 45.1 % (42.0-52.0); Hemoglobin 15.7 g/dL (14.0-18.0); Immature Granulocyte Absolute 0.01 K/mm3 (0.00-0.031); Immature Granulocyte Percent A 0.2 % (0-0.5); Lymphocytes Absolute Auto 2.76 K/mm3 (0.9-3.2); Lymphocytes Percent Auto 51.1 % (18.3-44.2); Mean Corpuscular HGB Conc 34.8 g/dl (32-36); Mean Corpuscular Hemoglobin 31.7 pg (26-34); Mean Corpuscular Volume 91.1 fl (80-100); Mean Platelet Volume 9.4 fl (7.4-10.4); Monocytes Absolute Auto 0.3 K/mm3 (0.1-0.6); Neutrophils Absolute Auto 2.2 K/mm3 (1.3-6.7); Neutrophils Percent Auto 41.1 % (45.5-73.1); Platelet Count Result 315 k/mm3 (150-375); Red Blood Count 4.95 M/mm3 (4.6-6.20); Red Cell Distribution Width 13.4 % (11.5-14.5); White Blood Count 5.4 K/mm3 (4.5-10.0)
[2023-08-05 00:06] LABS: Prothrombin Time 13.4 Seconds (11.1-14.7)
[2023-08-05 00:07] LABS: Alanine Aminotransferase 83 U/L (6-50); Albumin Level 4.4 g/dL (3.5-5.1); Alkaline Phosphatase 179 U/L (38-126); Anion Gap 12 mmol/L (4-12); Aspartate Amino Transferase 81 U/L (17-59); Bilirubin,Total 0.4 mg/dL (0.2-1.3); Blood Urea Nitrogen 10 mg/dL (9-20); Calcium 8.6 mg/dL (8.4-10.2); Carbon Dioxide 30 mmol/L (22-30); Chloride 103 mmol/L (98-107); Estimated CRCL calculation 156 ml/min; Estimated Glomerular Filt Rate > 60; Glucose 108 mg/dL (65-110); Partial Thromboplastin Time 26.8 Seconds (22.3-36.8); Potassium 3.5 mmol/L (3.4-5.0); Sodium 145 mmol/L (137-145)
--- NOTE | 2023-08-05 00:12 | ED.AMS ---
HPI - Altered Mental Status General Chief Complaint: Altered Mental Status Stated Complaint: AMS S/P TAZER VANESSA REMOVAL Time Seen by Provider: 08/04/23 23:55 Source: patient and EMS Mode of arrival: EMS Limitations: no limitations History of Present Illness HPI narrative: This is a 33 year old male that presents to the ER for confusion. Patient was in police custody for trying to steal alcohol. They thought he seemed confused and brought him in for evaluation. Patient reports he is an alcoholic. He would like to stop drinking. Reports he did not drink alcohol tonight. He has no other complaints currently. Related Data Home Medications Medication Instructions Recorded Confirmed buprenorphine 8 mg-naloxone 2 mg film sublingual BID 01/28/23 sublingual film dextroamphetamine-amphetamine 30 30 mg PO BID 01/28/23 01/28/23 mg tablet escitalopram oxalate 20 mg tablet 20 mg PO DAILY 01/28/23 01/28/23 Allergies Allergy/AdvReac Type Severity Reaction Status Date / Time No Known Allergies Allergy Verified 01/28/23 09:35 Review of Systems Review of Systems: CONSTITUTIONAL: Denies fever CARDIOVASCULAR: Denies chest pain RESPIRATORY: Denies dyspnea. GASTROINTESTINAL: Denies abdominal pain, nausea, vomiting MUSCULOSKELETAL: Reports myalgia. NEUROLOGIC: Denies numbness, or weakness. PSYCHIATRIC: Reports depression. All systems reviewed & are unremarkable except as noted in HPI and below PMFSH Past Medical History Medical History ADHD Anxiety ETOH abuse Polysubstance abuse Social History Social History Social History: Patient says he was recently at a rehab in [place] completed treatment and then went to a sober living facility. He then moved appear to [place] because he needed work and his family owns a company and offered her him. Currently works at [employer]. Smoking packs per day: 0.5 Smoking cigarettes per day: 10.0 Years smoked: 5 Smoking pack-years: 2.50 Tobacco type: cigarettes Smokeless tobacco user: chewing tobacco Alcohol intake: current Alcohol use details: States he drinks 2 1/5's a day of vodka for the past few months. He has had a problem with alcohol abuse for 12 years. Substance use: former Substance use type: marijuana, amphetamines, opiates and IV drugs Other substance usage details: Last use IV methamphetamine 1 year ago. 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 HEAD: Normocephalic, atraumatic. EYES: PERRLA and EOMI. ENT: Nares clear, no rhinorrhea or epistaxis. Mucous membranes moist. Oropharynx without tonsillar hypertrophy exudate or other lesions. Bilateral TMs pearly rachel non-bulging NECK: Supple. No adenopathy or masses. CHEST: Clear to auscultation. No respiratory distress. No wheezes rales or rhonchi HEART: Regular rate and rhythm. No murmur heard. Normal peripheral pulses. ABDOMEN: Soft, nontender, nondistended, normal active bowel sounds. EXTREMITIES: Normal range of motion. No edema. SKIN: Warm, dry, no rash. NEURO: No focal deficits. Alert and oriented x3. Cranial nerves 2-12 grossly intact PSYCH: Normal mood and affect Course Course Emergency Course: Patient updated on his workup a
[2023-08-05 00:41] LABS: Appearance Urine Clear (Clear); Bacteria Urine None Seen /hpf; Bilirubin Urine Negative (Negative); Blood Urine Negative (Negative); Color Urine Yellow (Yellow); Glucose Urine UA Negative (Negative); Ketones Urine Negative (Negative); Leukocyte Esterase Ur Negative LEU/UL (Negative); Nitrate Urine Negative (Negative); Protein Urine 2+ mg/dL (Negative); RBC Urine 0-2 /hpf (0-2); Specific Grav Ur 1.013 (1.001-1.035); Squamous Epithelial Cell Urine None Seen /hpf (Few); WBC Urine 0-5 /hpf (0-3); pH Urine 6.5 (5.0-9.0)
[2023-08-05 00:42] LABS: Add Urine Microscopic? YES
[2023-08-05 00:53] LABS: Ethanol 359 mg/dL (<10)
[2023-08-05 00:55] LABS: Amphetamine Screen Urine Negative (Negative); Barbiturate Screen Urine Negative (Negative); Benzodiazepines Screen Urine Negative (Negative); Cannabinoid Screen Urine Negative (Negative); Cocaine Screen Urine Negative (Negative); Methadone Screen Urine Negative (Negative); Opiate Screen Urine Negative (Negative); Phencyclidine Screen Urine Negative (Negative)
== END 2023-08-05 01:42 | disposition home or self-care (01) ==
LOC: ANHED 08-05 00:38
PROVIDERS: Emergency Medicine; Emergency Provider Physician Assistant; PCP Nurse Practitioner
DX: F10.229 Alcohol dependence with intoxication, unspecified (principal); Y90.8 Blood alcohol level of 240 mg/100 ml or more; F90.9 Attention-deficit hyperactivity disorder, unspecified type; F41.9 Anxiety disorder, unspecified; F17.210 Nicotine dependence, cigarettes, uncomplicated; F17.220 Nicotine dependence, chewing tobacco, uncomplicated; R94.31 Abnormal electrocardiogram [ECG] [EKG]
CPT/HCPCS: 36415; 80053; 80307; 81001; 85025; 85610; 85730; 93005; 99284

== ENCOUNTER 2024-01-31 15:07 | Emergency (ER) | payer OTHER, SELFPAY ==
--- NOTE | ~2024-01-31 | XR_ITS ---
XR foot LT 2V Ordering provider: Jovanni Thompson History: . PAIN TO HEEL AFTER IMPACT FALL OFF LADDER . Comparison: None. FINDINGS: BONES: No acute fracture or dislocation. JOINT SPACES: Normal. No tarsal coalition. SOFT TISSUES: Normal. IMPRESSION: No acute osseous abnormality left foot. Reviewed, dictated and finalized at location A.
--- NOTE | ~2024-01-31 | XR_ITS ---
HISTORY: PAIN TO HEEL AFTER IMPACT FALL OFF LADDER COMPARISON: None TECHNIQUE: 2 views of the left calcaneus were performed FINDINGS: No acute fracture is identified. Ossification of the insertion of the tendon is noted. Mild soft tissue swelling is present. IMPRESSION: Soft tissue swelling, without acute fracture. Reviewed, dictated and finalized at location A.
--- NOTE | ~2024-01-31 | XR_ITS ---
XR ankle LT min 3V Ordering provider: Jovanni Thompson History: . PAIN TO HEEL AFTER IMPACT FALL OFF LADDER . Comparison: None FINDINGS: BONES: No acute fracture or dislocation. JOINT SPACES: The ankle mortise is normal. SOFT TISSUES: Normal. IMPRESSION: No acute osseous abnormality left ankle. Reviewed, dictated and finalized at location A.
[2024-01-31 15:15] VITALS: BP 135/98; PULSE 91; RESP 18; TEMP 36.8; O2SAT 97
--- NOTE | 2024-01-31 16:06 | ED_ITS ---
HPI - Extremity Injury (Lower) General Chief Complaint: Extremity Injury, Lower Stated Complaint: left foot injury Time Seen by Provider: 01/31/24 15:58 Source: patient Mode of arrival: ambulatory Limitations: no limitations History of Present Illness HPI Narrative: 33-year-old male who presents to the ED for chief complaint of left foot injury after falling off ladder at work today. Reports he fell around 8-10 feet. States that he has pain primarily in the heel which is why he fell onto. Denies pain in the ankle or foot. Denies any further sites of pain or injury. Denies numbness or weakness. Related Data Home Medications Medication Instructions Recorded Confirmed buprenorphine 8 mg-naloxone 2 mg film sublingual BID 01/28/23 sublingual film dextroamphetamine-amphetamine 30 30 mg PO BID 01/28/23 01/28/23 mg tablet escitalopram oxalate 20 mg tablet 20 mg PO DAILY 01/28/23 01/28/23 Allergies Allergy/AdvReac Type Severity Reaction Status Date / Time No Known Allergies Allergy Verified 01/28/23 09:35 Review of Systems Review of Systems: All systems as dictated in [facility] Past Medical History Medical History ADHD Anxiety ETOH abuse Polysubstance abuse Social History Social History Social History: Patient says he was recently at a rehab in [place] completed treatment and then went to a sober living facility. He then moved appear to [place] because he needed work and his family owns a company and offered her him. Currently works at [employer]. Smoking packs per day: 0.5 Smoking cigarettes per day: 10.0 Years smoked: 5 Smoking pack-years: 2.50 Tobacco type: cigarettes Smokeless tobacco user: chewing tobacco Alcohol intake: current Alcohol use details: States he drinks 2 1/5's a day of vodka for the past few months. He has had a problem with alcohol abuse for 12 years. Substance use: former Substance use type: marijuana, amphetamines, opiates and IV drugs Other substance usage details: Last use IV methamphetamine 1 year ago. 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 MSK: Normal range of motion. No edema. Mild tenderness to the medial left heel. No bruising or deformity. SKIN: Warm, dry, no rash. NEURO: Alert and oriented x4. No focal deficits. PSYCH: Normal mood and affect. Course Vital Signs Vital signs: Vital Signs Temperature 98.3 F 01/31/24 15:15 Pulse Rate 91 01/31/24 15:15 Respiratory Rate 18 01/31/24 15:15 Blood Pressure 135/98 H 01/31/24 15:15 Pulse Oximetry 97 01/31/24 15:15 Temperature 98.3 F 01/31/24 15:15 Pulse Rate 91 01/31/24 15:15 Respiratory Rate 18 01/31/24 15:15 Blood Pressure 135/98 H 01/31/24 15:15 Pulse Oximetry 97 01/31/24 15:15 MDM - Extremity Injury (Lower) MDM Narrative Medical decision making narrative: This is a 33-year-old male who presents to the ED for chief complaint of left heel injury. Vitals Are normal. Exam shows mild tenderness to the left heel but no bruising or deformity. Left heel, foot, ankle x-rays are all negative for acute osseous findings. Presentation consistent with soft tissue injury of the heel. Patient will be given crutches for comfort. Patient will be discharged in stable condition. Supportive measures discussed and return precautions given. Patient is understanding and agreeable with plan for discharge with PCP follow-up. Discharge Plan Discharge Clinical Impression: Injury of foot, left Patient Disposition: Home, Self-Care Condition: Stable Instructions: Antibiotic Form Additional Instructions: Exam and imaging today are reassuring overall. Please take Tylenol and ibuprofen as needed for pain control. If you have any new or worsening symptoms please return to the ER for further evaluation. Prescriptions: No Action escitalopram oxalate 20 mg tablet 20 mg PO DAILY dextroamphetamine-amphetamine 30 mg tablet 30 mg PO BID buprenorphine-naloxone 8-2 mg film sublingual BID chlordiazepoxide HCl 25 mg Capsule 25 mg PO Q8H Qty: 10 0RF Rx Instructions: 25mg (1 capsule) 3x/day through tomorrow (01/31) then decrease to 25mg (1 capsule) 2x/day for 2 days (02/01 and 02/02) then decrease to 25mg (1 capsule) every night for 2 nights (02/03 and 02/04) then off. Thera M Plus (ferrous fumarat) 9 mg iron-400 mcg Tablet 1 tablet PO QAM Qty: 30 0RF thiamine HCl (vitamin B1) 100 mg tablet 100 mg PO DAILY Qty: 30 0RF chlordiazepoxide HCl 25 mg capsule 25 mg PO ONCE Qty: 10 0RF Rx Instructions: Take 1 pill every 6 hours on day 1, 1 pill every 8 hours on day 2, 1 pill every 12 hours on day 3 and 1 pill once a day on the 4th day. Follow-up/Referrals: Coleen,DIONTE Moreno [Primary Care Provider] - Time of Disposition: 16:08
== END 2024-01-31 16:14 | disposition home or self-care (01) ==
LOC: ANHED 16:10
PROVIDERS: Emergency Provider Physician Assistant; PCP Nurse Practitioner
DX: S99.922A Unspecified injury of left foot, initial encounter (principal); Z79.899 Other long term (current) drug therapy; F90.9 Attention-deficit hyperactivity disorder, unspecified type; F41.9 Anxiety disorder, unspecified; F17.210 Nicotine dependence, cigarettes, uncomplicated; F17.220 Nicotine dependence, chewing tobacco, uncomplicated; W11.XXXA Fall on and from ladder, initial encounter
CPT/HCPCS: 73610; 73620; 73650; 99283

== ENCOUNTER 2024-04-21 17:56 | Emergency (ER) | payer OTHER, SELFPAY ==
--- NOTE | ~2024-04-21 | XR_ITS ---
CHEST RADIOGRAPH, PA AND LATERAL CLINICAL HISTORY: chest pain . COMPARISON: None available TECHNIQUE: PA and lateral views of the chest. FINDINGS The cardiomediastinal silhouette is unremarkable. The lungs are clear. Visualized osseous structures and soft tissues are unremarkable. IMPRESSION: No focal infiltrate or effusion. Reviewed, dictated and finalized at location A. RDS OFFICER
--- NOTE | 2024-04-21 18:04 | ECG_ITS ---
Test Date: 2024-04-21 18:12:03 Measurements Intervals [place] Rate: 79 P: 34 HI: 151 QRS: -23 QRSD: 103 T: 18 QT: 361 QTc: 414 Interpretive Statements SINUS RHYTHM BORDERLINE LEFT AXIS DEVIATION [QRS AXIS < -20] No previous ECG available for comparison Electronically Signed On 04-22-2024 14:18:22 GLUE SIZE MACHINE OPERATOR by Lawrence Shannon M.D.
[2024-04-21 18:36] VITALS: BP 126/83; PULSE 78; RESP 16; TEMP 36.3; O2SAT 99
[2024-04-21 19:04] LABS: Basophils Absolute Auto 0.1 K/mm3 (0.0-0.1); Basophils Percent Auto 1.2 % (0.2-1.2); Eosinophils Percent Auto 0.7 % (0-4.4); Hematocrit 47.7 % (42.0-52.0); Hemoglobin 15.7 g/dL (14.0-18.0); Immature Granulocyte Absolute 0.02 K/mm3 (0.00-0.031); Immature Granulocyte Percent A 0.3 % (0-0.5); Lymphocytes Absolute Auto 2.83 K/mm3 (0.9-3.2); Lymphocytes Percent Auto 48.4 % (18.3-44.2); Mean Corpuscular HGB Conc 32.9 g/dl (32-36); Mean Corpuscular Hemoglobin 30.3 pg (26-34); Mean Corpuscular Volume 92.1 fl (80-100); Monocytes Absolute Auto 0.2 K/mm3 (0.1-0.6); Monocytes Percent Auto 4.1 % (2.6-8.5); Neutrophils Absolute Auto 2.7 K/mm3 (1.3-6.7); Neutrophils Percent Auto 45.3 % (45.5-73.1); Platelet Count Result 382 k/mm3 (150-375); Red Blood Count 5.18 M/mm3 (4.6-6.20); Red Cell Distribution Width 14.6 % (11.5-14.5); White Blood Count 5.9 K/mm3 (4.5-10.0)
[2024-04-21 19:17] LABS: Partial Thromboplastin Time 26.7 Seconds (22.3-36.8); Prothrombin Time 13.4 Seconds (11.1-14.7)
[2024-04-21 19:20] LABS: Alanine Aminotransferase 44 U/L (6-50); Albumin Level 4.9 g/dL (3.5-5.1); Alkaline Phosphatase 181 U/L (38-126); Anion Gap 13 mmol/L (4-12); Aspartate Amino Transferase 49 U/L (17-59); Bilirubin,Total 0.4 mg/dL (0.2-1.3); Blood Urea Nitrogen 6 mg/dL (9-20); Calcium 8.7 mg/dL (8.4-10.2); Carbon Dioxide 30 mmol/L (22-30); Chloride 109 mmol/L (98-107); Estimated CRCL calculation 160 ml/min; Estimated Glomerular Filt Rate > 60; Glucose 104 mg/dL (65-110); Lipase 195 U/L (23-300); Potassium 4.4 mmol/L (3.4-5.0); Sodium 152 mmol/L (137-145)
[2024-04-21 19:32] LABS: Troponin I < 0.012 ng/mL (0.000-0.034)
[2024-04-21] MEDS: ASPIRIN 81 MG CHEWABLE TABLET 324 MG PO (20:49)
[2024-04-21] MEDS: SODIUM CHLORIDE 0.9% IV 2,000 ML 999 ML IV CONT (20:51)
--- NOTE | 2024-04-21 21:31 | ED_ITS ---
HPI - General Adult General Chief complaint: Chest Pain Stated complaint: chest pain x2d, alcohol withdrawal Time Seen by Provider: 04/21/24 20:18 History of Present Illness HPI narrative: This is a 34-year-old male with history of polysubstance abuse and Suboxone use presenting for chest pain. Patient says that he ran out of Suboxone 3 days ago because he missed his appointment [place]. Since then he has developed a pain in the center of his chest that is often on. He says he cannot describe exactly where the pain is but it is kind of all over. It comes and goes in intensity but is always there. He has never had pain like this before and there are no exacerbating alleviating factors. He denies fevers chills productive cough abdominal pain. He says he feels short of breath but that is because he gets wakes up gasping for air at night and has obstructive sleep apnea and does use BiPAP. Last drink was last night where he drink upon fireball. Patient says he thinks that his chest pain is due to Suboxone withdrawal. Related Data Home Medications ?Medication ?Instructions ?Recorded ?Confirmed ?Last Taken ?Type buprenorphine 8 mg-naloxone 2 mg film sublingual BID 01/28/23 01/27/23 History sublingual film dextroamphetamine-amphetamine 30 30 mg PO BID 01/28/23 01/28/23 Unknown History mg tablet escitalopram oxalate 20 mg tablet 20 mg PO DAILY 01/28/23 01/28/23 Unknown History Allergies Allergy/AdvReac Type Severity Reaction Status Date / Time No Known Allergies Allergy Verified 04/21/24 18:00 [facility] Past Medical History Medical History Polysubstance abuse ETOH abuse Anxiety ADHD Social History Social History Social History: Patient says he was recently at a rehab in [place] completed treatment and then went to a sober living facility. He then moved appear to [place] because he needed work and his family owns a company and offered her him. Currently works at [employer]. Smoking packs per day: 0.5 Smoking cigarettes per day: 10.0 Years smoked: 5 Smoking pack-years: 2.50 Tobacco type: cigarettes Smokeless tobacco user: chewing tobacco Alcohol intake: current Alcohol use details: States he drinks 2 1/5's a day of vodka for the past few months. He has had a problem with alcohol abuse for 12 years. Substance use: former Substance use type: marijuana, amphetamines, opiates and IV drugs Other substance usage details: Last use IV methamphetamine 1 year ago. 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 Non tremulous, non diaphoretic Head: atraumatic. EYES: EOMI, 2 mm equal reactive NOSE: Atraumatic NECK: Trachea midline RESPIRATORY: No increased rate of breathing CTAB CARDIOVASCULAR: RRR, ABDOMINAL: Non-distended MUSCULOSKELETAl: No obvious deformities NEURO: Alert. Moving 4/4 extremities SKIN:: Warm, dry. Normal color PSYCHIATRIC: Normal affect Course Vital Signs Vital signs: Vital Signs Temperature 97.3 F L 04/21/24 18:36 Pulse Rate 78 04/21/24 18:36 Respiratory Rate 16 04/21/24 18:36 Blood Pressure 126/83 04/21/24 18:36 Pulse Oximetry 99 04/21/24 18:36 Oxygen Delivery Room Air 04/21/24 18:36 Temperature 97.3 F L 04/21/24 18:36 Pulse Rate 78 04/21/24 18:36 Respiratory Rate 16 04/21/24 18:36 Blood Pressure 126/83 04/21/24 18:36 Pulse Oximetry 99 04/21/24 18:36 Oxygen Delivery Room Air 04/21/24 20:40 Medical Decision Making MDM Narrative Medical decision making narrative: -Course: 34-year-old male with polysubstance abuse coming to ED with chief complaint of chest pain. After I spoke with the patient and discussed his results the patient admitted that he was just here to get a dose of buprenorphine. No evidence of severe withdrawal. I discussed other causes of his chest pain such as PE and congestive heart failure in patient declined any further workup. Patient was given a dose of buprenorphine. He will see his provider 1st thing in the morning tomorrow to get refill on his prescription. given return precautions. -DDX includes but is not limited to: ACS, pneumonia, pneumothorax, malingering/secondary gain, opiate withdrawal, alcohol intoxication -Co-morbidities complicating care: Polysubstance use disorder -Independent interpretation of studies: COWS Score for Opiate Withdrawal from [employer] on 04/21/2024 All calculations should be rechecked by clinician prior to use RESULT SUMMARY: 0 points No active withdrawal INPUTS: Resting Pulse Rate (BPM) ?> 0 = <=0 Sweating ?> 0 = No report of chills or flushing Restlessness observation during assessment ?> 0 = Able to sit still Pupil size ?> 0 = Pupils pinned or normal size for room light Bone or joint aches ?> 0 = Not present Runny nose or tearing ?> 0 = Not present GI Upset ?> 0 = No GI symptoms Tremor observation of outstretched hands ?> 0 = No tremor Yawning observation during assessment ?> 0 = No yawning Anxiety or irritability ?> 0 = None Gooseflesh skin ?> 0 = Skin is smooth Labs reviewed. Imaging reviewed. Independent EKG interpretation: Rhythm [sinus], Rate [79], [place] -[normal], [place] -[normal], QRS [narrow], QTC [normal], T waves -[negative for concerning inversions], ST Segments - [Negative for concerning elevations] Final interpretations: [Normal Sinus Rhythm] -Interventions:buprenorphine -Shared decision making / Disposition: Discharged Vital Signs Vital Signs: Vital Signs Temperature 97.3 F L 04/21/24 18:36 Pulse Rate 78 04/21/24 18:36 Respiratory Rate 16 04/21/24 18:36 Blood Pressure 126/83 04/21/24 18:36 Pulse Oximetry 99 04/21/24 18:36 Oxygen Delivery Room Air 04/21/24 18:36 Temperature 97.3 F L 04/21/24 18:36 Pulse Rate 78 04/21/24 18:36 Respiratory Rate 16 04/21/24 18:36 Blood Pressure 126/83 04/21/24 18:36 Pulse Oximetry 99 04/21/24 18:36 Oxygen Delivery Room Air 04/21/24 20:40 Lab Data 04/21/24 18:48 04/21/24 18:48 Labs: Lab Results 04/21/24 Range/Units 18:48 WBC 5.9 (4.5-10.0) K/mm3 RBC 5.18 (4.6-6.20) M/mm3 Hgb 15.7 (14.0-18.0) g/dL Hct 47.7 (42.0-52.0) % MCV 92.1 (80-100) fl MCH 30.3 (26-34) pg MCHC 32.9 (32-36) g/dl RDW 14.6 H (11.5-14.5) % Plt Count 382 H (150-375) k/mm3 MPV 10.0 (7.4-10.4) fl Immature Gran % (Auto) 0.3 (0-0.5) % Neut % (Auto) 45.3 L (45.5-73.1) % Lymph % (Auto) 48.4 H (18.3-44.2) % [place] % (Auto) 4.1 (2.6-8.5) % Eos % (Auto) 0.7 (0-4.4) % Baso % (Auto) 1.2 (0.2-1.2) % Lymph # (Auto) 2.83 (0.9-3.2) K/mm3 [place] # (Auto) 0.2 (0.1-0.6) K/mm3 Eos # (Auto) 0.0 (0-0.3) K/mm3 Baso # (Auto) 0.1 (0.0-0.1) K/mm3 Abs Immat Gran (auto) 0.02 (0.00-0.031) K/mm3 Absolute Neuts (auto) 2.7 (1.3-6.7) K/mm3 Absolute Nucleated RBC 0.000 (0.0-0.012) K/mm3 Nucleated RBC % 0.0 (0.0-0.2) % PT 13.4 (11.1-14.7) Seconds INR 1.0 APTT 26.7 (22.3-36.8) Seconds Sodium 152 H (137-145) mmol/L Potassium 4.4 (3.4-5.0) mmol/L Chloride 109 H (98-107) mmol/L Carbon Dioxide 30 (22-30) mmol/L Anion Gap 13 H (4-12) mmol/L BUN 6 L (9-20) mg/dL Creatinine 0.78 (0.7-1.3) mg/dL Estim Creat Clear Calc 160 ml/min Estimated GFR > 60 (59 - ) Glucose 104 (65-110) mg/dL Calcium 8.7 (8.4-10.2) mg/dL Total Bilirubin 0.4 (0.2-1.3) mg/dL AST 49 (17-59) U/L ALT 44 (6-50) U/L Alkaline Phosphatase 181 H (38-126) U/L Troponin I < 0.012 (0.000-0.034) ng/mL Total Protein 9.0 H (6.3-8.2) g/dL Albumin 4.9 (3.5-5.1) g/dL Lipase 195 (23-300) U/L Discharge Plan Discharge Clinical Impression: Polysubstance abuse Patient Disposition: Home, Self-Care Condition: Stable Instructions: Antibiotic Form, Opioid Use Disorder (ED) Additional Instructions: Please see your provider tomorrow to refill your Suboxone. Return if you develop chest pain difficulty breathing or any new symptoms. Patient Language: Indian Prescriptions: No Action escitalopram oxalate 20 mg tablet 20 mg PO DAILY dextroamphetamine-amphetamine 30 mg tablet 30 mg PO BID buprenorphine-naloxone 8-2 mg film sublingual BID chlordiazepoxide HCl 25 mg Capsule 25 mg PO Q8H Qty: 10 0RF Rx Instructions: 25mg (1 capsule) 3x/day through tomorrow (01/31) then decrease to 25mg (1 capsule) 2x/day for 2 days (02/01 and 02/02) then decrease to 25mg (1 capsule) every night for 2 nights (02/03 and 02/04) then off. Thera M Plus (ferrous fumarat) 9 mg iron-400 mcg Tablet 1 tablet PO QAM Qty: 30 0RF thiamine HCl (vitamin B1) 100 mg tablet 100 mg PO DAILY Qty: 30 0RF chlordiazepoxide HCl 25 mg capsule 25 mg PO ONCE Qty: 10 0RF Rx Instructions: Take 1 pill every 6 hours on day 1, 1 pill every 8 hours on day 2, 1 pill every 12 hours on day 3 and 1 pill once a day on the 4th day. Follow-up/Referrals: Coleen,DIONTE Moreno [Primary Care Provider] -
--- NOTE | 2024-04-21 21:55 | PC.NURSE ---
Pt. states he accidently removed his IV. Only 1L fluids infused.
[2024-04-21] MEDS: BUPRENORPHINE HCL (*CRX) 2 MG SUBLINGUAL TABLET 4 MG PO (21:58)
[2024-04-21 21:59] VITALS: BP 119/64; PULSE 88; RESP 16; O2SAT 100
== END 2024-04-21 22:03 | disposition home or self-care (01) ==
PROVIDERS: Student in an Organized Health Care Education/Training Program; Emergency Provider Emergency Medicine; PCP Nurse Practitioner
DX: F19.10 Other psychoactive substance abuse, uncomplicated (principal); F41.9 Anxiety disorder, unspecified; F90.9 Attention-deficit hyperactivity disorder, unspecified type; F17.210 Nicotine dependence, cigarettes, uncomplicated
CPT/HCPCS: 36415; 71046; 80053; 83690; 84484; 85025; 85610; 85730; 93005; 96360; 96361; 99284; A9270; J7030

== ENCOUNTER 2024-04-22 14:04 | Emergency (ER) | payer OTHER, SELFPAY ==
--- NOTE | ~2024-04-22 | CT_ITS ---
CT brain wo con Ordering provider: Jayshree Flores PA-C History: 34 years Male with . head injury . Comparison: None. Technique: CT of the head without contrast. Radiation reduction technique utilized. The dose-length product was 605.33 mGy-cm. FINDINGS: BRAIN PARENCHYMA AND CSF SPACES: No midline shift, mass effect or hemorrhage. The brain parenchyma a nd CSF spaces are otherwise normal. VISUALIZED PARANASAL SINUSES: Well aerated. MASTOIDS: Well aerated. BONES: The bones appear intact. SOFT TISSUES: Visualized nasopharynx is normal. Superficial soft tissues are normal. IMPRESSION: No acute intracranial findings. Reviewed, dictated and finalized at location A. [employer] BUSINESS INFORMATION
[2024-04-22 14:14] VITALS: BP 162/99; PULSE 58; RESP 17; TEMP 36.4; O2SAT 100
[2024-04-22 15:15] LABS: Alanine Aminotransferase 30 U/L (6-50); Albumin Level 3.9 g/dL (3.5-5.1); Alkaline Phosphatase 156 U/L (38-126); Anion Gap 8 mmol/L (4-12); Aspartate Amino Transferase 36 U/L (17-59); Bilirubin,Total 0.7 mg/dL (0.2-1.3); Blood Urea Nitrogen 9 mg/dL (9-20); Calcium 7.7 mg/dL (8.4-10.2); Carbon Dioxide 30 mmol/L (22-30); Chloride 97 mmol/L (98-107); Estimated CRCL calculation 187 ml/min; Estimated Glomerular Filt Rate > 60; Glucose 95 mg/dL (65-110); Potassium 3.7 mmol/L (3.4-5.0); Sodium 135 mmol/L (137-145)
[2024-04-22] MEDS: CALCIUM CARBONATE (TUMS) 500 MG (200 MG ELEMENTAL) PO (15:44)
[2024-04-22 15:45] VITALS: BP 133/92; PULSE 87; RESP 16; O2SAT 98
--- NOTE | 2024-04-22 16:37 | ED.HEATRA ---
HPI - Head Injury General Chief complaint: Head Injury Stated complaint: fall on the ice 2 days ago-headache Time Seen by Provider: 04/22/24 14:36 History of Present Illness HPI Narrative: Patient is a 34-year-old male who presents ER with several complaints. First complaint is head injury a couple days ago. Slipped on ice striking his head. No LOC. Now when he is active he is having increased headaches and blurred vision. No vomiting. He is not on blood thinner. Patient also reports he recently was diagnosed with renal failure. Last night he was seen in his sodium was elevated. He is concerned that his electrolytes may be off. Related Data Home Medications ?Medication ?Instructions ?Recorded ?Confirmed ?Last Taken ?Type buprenorphine 8 mg-naloxone 2 mg film sublingual BID 01/28/23 01/27/23 History sublingual film dextroamphetamine-amphetamine 30 30 mg PO BID 01/28/23 01/28/23 Unknown History mg tablet escitalopram oxalate 20 mg tablet 20 mg PO DAILY 01/28/23 01/28/23 Unknown History Allergies Allergy/AdvReac Type Severity Reaction Status Date / Time No Known Allergies Allergy Verified 04/21/24 18:00 Review of Systems Review of Systems: All systems reviewed & are unremarkable except as noted in HPI and below Constitutional: Constitutional: Reports no additional constitutional complaints Cardiovascular: Cardiovascular: Reports no additional cardiovascular complaints Respiratory: Respiratory: Reports no additional respiratory complaints Neurologic: Reports system reviewed and no additional complaints, except as documented [facility] Past Medical History Medical History Polysubstance abuse ETOH abuse Anxiety ADHD Social History Social History Social History: Patient says he was recently at a rehab in [place] completed treatment and then went to a sober living facility. He then moved appear to [place] because he needed work and his family owns a company and offered her him. Currently works at [employer]. Smoking packs per day: 0.5 Smoking cigarettes per day: 10.0 Years smoked: 5 Smoking pack-years: 2.50 Tobacco type: cigarettes Smokeless tobacco user: chewing tobacco Alcohol intake: current Alcohol use details: States he drinks 2 1/5's a day of vodka for the past few months. He has had a problem with alcohol abuse for 12 years. Substance use: former Substance use type: marijuana, amphetamines, opiates and IV drugs Other substance usage details: Last use IV methamphetamine 1 year ago. 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 HEAD: Normocephalic, atraumatic. EYES: PERRL and EOMI. ENT: Mucous membranes moist. TMs normal bilaterally CHEST: Clear to auscultation. No respiratory distress. HEART: Regular rate and rhythm. Normal peripheral pulses. ABDOMEN: Soft, nontender, nondistended. EXTREMITIES: Normal range of motion. No edema. NEURO: Alert and oriented x3. PSYCH: Normal mood and affect. Course Course Emergency Course: Patient resting comfortably. Calcium replaced with Tums. CT scan unremarkable. Discussed closed-head injury precautions. Vital Signs Vital signs: Vital Signs Temperature 97.6 F 04/22/24 14:14 Pulse Rate 58 L 04/22/24 14:14 Respiratory Rate 17 04/22/24 14:14 Blood Pressure 162/99 H 04/22/24 14:14 Pulse Oximetry 100 04/22/24 14:14 Temperature 97.6 F 04/22/24 14:14 Pulse Rate 85 04/22/24 16:55 Respiratory Rate 16 04/22/24 16:55 Blood Pressure 138/96 H 04/22/24 16:55 Pulse Oximetry 97 04/22/24 16:55 MDM - Head Injury Lab Data 04/22/24 14:58 Labs: Lab Results 04/22/24 Range/Units 14:58 Sodium 135 L (137-145) mmol/L Potassium 3.7 (3.4-5.0) mmol/L Chloride 97 L (98-107) mmol/L Carbon Dioxide 30 (22-30) mmol/L Anion Gap 8 (4-12) mmol/L BUN 9 (9-20) mg/dL Creatinine 0.65 L (0.7-1.3) mg/dL Estim Creat Clear Calc 187 ml/min Estimated GFR > 60 (59 - ) Glucose 95 (65-110) mg/dL Calcium 7.7 L (8.4-10.2) mg/dL Total Bilirubin 0.7 (0.2-1.3) mg/dL AST 36 (17-59) U/L ALT 30 (6-50) U/L Alkaline Phosphatase 156 H (38-126) U/L Total Protein 7.0 (6.3-8.2) g/dL Albumin 3.9 (3.5-5.1) g/dL Imaging Data Radiologist's impression: ITS Impressions Head CT 04/22/24 14:41 IMPRESSION: No acute intracranial findings. Discharge Plan Discharge Clinical Impression: Concussion, Hypocalcemia Patient Disposition: Home, Self-Care Condition: Stable Instructions: Concussion (ED) Additional Instructions: Return ER if you have fever 100.4? F, you cannot keep down food water, you lose consciousness, have additional concerns. Patient Language: Tajik Prescriptions: No Action escitalopram oxalate 20 mg tablet 20 mg PO DAILY dextroamphetamine-amphetamine 30 mg tablet 30 mg PO BID buprenorphine-naloxone 8-2 mg film sublingual BID chlordiazepoxide HCl 25 mg Capsule 25 mg PO Q8H Qty: 10 0RF Rx Instructions: 25mg (1 capsule) 3x/day through tomorrow (01/31) then decrease to 25mg (1 capsule) 2x/day for 2 days (02/01 and 02/02) then decrease to 25mg (1 capsule) every night for 2 nights (02/03 and 02/04) then off. Thera M Plus (ferrous fumarat) 9 mg iron-400 mcg Tablet 1 tablet PO QAM Qty: 30 0RF thiamine HCl (vitamin B1) 100 mg tablet 100 mg PO DAILY Qty: 30 0RF chlordiazepoxide HCl 25 mg capsule 25 mg PO ONCE Qty: 10 0RF Rx Instructions: Take 1 pill every 6 hours on day 1, 1 pill every 8 hours on day 2, 1 pill every 12 hours on day 3 and 1 pill once a day on the 4th day. Follow-up/Referrals: Coleen,DIONTE Moreno [Primary Care Provider] - 1 Week
--- NOTE | 2024-04-22 16:54 | PC.NURSE ---
Pt. has no visible wound or injury to assess.
[2024-04-22 16:55] VITALS: BP 138/96; PULSE 85; RESP 16; O2SAT 97
== END 2024-04-22 17:00 | disposition home or self-care (01) ==
PROVIDERS: Emergency Provider Emergency Medicine; PCP Nurse Practitioner
DX: S06.0X0A Concussion without loss of consciousness, initial encounter (principal); E83.51 Hypocalcemia; W00.0XXA Fall on same level due to ice and snow, initial encounter; F17.210 Nicotine dependence, cigarettes, uncomplicated; F17.220 Nicotine dependence, chewing tobacco, uncomplicated; F12.90 Cannabis use, unspecified, uncomplicated; F15.90 Other stimulant use, unspecified, uncomplicated; F11.90 Opioid use, unspecified, uncomplicated
CPT/HCPCS: 36415; 70450; 80053; 99284; A9270